=== PATIENT | male | born 1960 | race Caucasian/White ===

== ENCOUNTER 2019-11-02 07:16 | Inpatient (IN) | payer MEDICARE ==
[~2019-11-02] VITALS: Ht 180.3 cm; Wt 75.0 kg
[2019-11-02] MEDS ORDERED: SODIUM CHLORIDE FLUSH 10ML SYR IVF ONE (07:30)
[2019-11-02] MEDS ORDERED: SODIUM CHLORIDE 0.9% 1,000ML IVBOLUS ONE (07:30)
--- NOTE | 2019-11-02 07:37 | NUR ---
PT BIB [facility]. PER REPORTS PT WITH INCREASED WEAKNESS X3 DAYS. COUGH AND FEVER. PT WITH REPORTED DIARHHEA WELL. PER SHE WAS SICK A WEEK AGO AND IS CONCERNED HE HAS WHAT SHE HAD AT THE TIME. PT WITH HX OF [place] AND IS NON VERBAL, ALL REPORT FROM . MASK APPLIED TO PT. PT ST ON MONITOR 120S. 1L ONCOLOGY PHYSICIAN GIVEN, ADDITIONAL BOLUS HUNG PER ERMD. PT ON ALL MONITORS.
[2019-11-02] MEDS ORDERED: ACETAMINOPHEN 650 MG/20.3 ML UDC ONE (08:30)
[2019-11-02] MEDS ORDERED: ACETAMINOPHEN 500 MG TABLET PO ONE (08:30)
[2019-11-02] MEDS ORDERED: ACETAMINOPHEN 650 MG/20.3 ML UDC PEG ONE (08:30)
[2019-11-02 08:35] LABS: BASOPHILS % (AUTO) 0 % (0-1); EOSINOPHILS # (AUTO) 0.01 x10^3/uL (0-0.4); EOSINOPHILS % (AUTO) 0 % (1-7); LYMPHOCYTES # (AUTO) 0.17 x10^3/uL (1-3.4); LYMPHOCYTES % (AUTO) 4 % (22-44); MD NO; MEAN CORPUSCULAR HEMOGLOBIN 30.2 pg (27.5-34.5); MEAN CORPUSCULAR HGB CONC 33.5 g/dL (33.2-36.2); MEAN CORPUSCULAR VOLUME 90.1 fL (81-97); MONOCYTES # (AUTO) 0.32 x10^3/uL (0.2-0.8); MONOCYTES % (AUTO) 7 % (2-9); NEUTROPHILS # (AUTO) 3.92 x10^3/uL (1.8-6.8); NEUTROPHILS % (AUTO) 89 % (42-75); PLATELET COUNT 136 x10^3/uL (130-400); RED BLOOD COUNT 4.97 x10^6/uL (4.38-5.82); RED CELL DISTRIBUTION WIDTH 14.1 % (9.4-14.8)
[2019-11-02 08:37] LABS: ALANINE AMINOTRANSFERASE 42 U/L (12-78); ALBUMIN 2.9 g/dL (3.4-5.0); ANION GAP 5 mmol/L (5-15); CALCIUM 8.3 mg/dL (8.5-10.1); CHLORIDE 116 mmol/L (98-107); CREATININE 1.05 mg/dL (0.7-1.3)
--- NOTE | 2019-11-02 08:37 | NUR ---
PT MEDICATED PER OCT. PT REMAINS ST 140S ON MONITOR, ERMD UPDATED. NO ADDITIONAL ORDERS AT THIS TIME
[2019-11-02 08:38] LABS: MICROSCOPIC AUTO
[2019-11-02 08:41] LABS: ALKALINE PHOSPHATASE 58 U/L (45-117); BILIRUBIN,TOTAL 0.4 mg/dL (0.2-1.0); TOTAL PROTEIN 6.8 g/dL (6.4-8.2)
[2019-11-02 08:48] LABS: CULTURE INDICATED? NO
[2019-11-02] MEDS ORDERED: PIPERACILLIN/TAZO/PMX 3.375GM 50 ML ONE (08:58)
[2019-11-02] MEDS: PLEASE ENTER ALLERGIES MC SCH ×2 (09:00→16:36)
[2019-11-02] MEDS ORDERED: PIPERACILLIN/TAZO/PMX 3.375GM 50 ML IV ONE (09:00)
[2019-11-02] MEDS ORDERED: VANCOMYCIN PER PHARMACY MC PRN ×2 (09:00→09:30)
--- NOTE | 2019-11-02 09:08 | NUR ---
ADMITTING MD AT BEDSIDE
[2019-11-02] MEDS ORDERED: NS + 20MEQ KCL 1,000 ML IV SCH (09:16)
[2019-11-02] MEDS ORDERED: KETOROLAC 30 MG/1 ML IV PRN (09:30)
[2019-11-02] MEDS ORDERED: ONDANSETRON ODT 4 MG PO PRN (09:30)
[2019-11-02] MEDS ORDERED: LORazepam 2 MG/ML, 1ML IVPush PRN (09:30)
[2019-11-02] MEDS ORDERED: morphine SULFATE 10 MG/ML, 1ML IVPush PRN (09:30)
[2019-11-02] MEDS ORDERED: hydrALAzine 20 MG/ML, 1ML IVPush PRN (09:30)
[2019-11-02] MEDS ORDERED: ONDANSETRON 2MG/ML, 2ML IVPush PRN (09:30)
[2019-11-02] MEDS ORDERED: NS + 20MEQ KCL 1,000 ML IV ONE (09:43)
[2019-11-02 10:13] LABS: RAPID INFLUENZA A POSITIVE (Negative); RAPID INFLUENZA B Negative (Negative)
--- NOTE | 2019-11-02 11:12 | NUR ---
POC DISCUSSED WITH PT. PT AND FAMILY AT BEDSIDE WOULD LIKE TO DISCONTINUE TREATMENT AND START COMFORT CARE MEASURES, ADMITTING MD MADE AWARE
[2019-11-02] MEDS ORDERED: SCOPOLAMINE 1MG PATCH TD PRN (12:00)
[2019-11-02] MEDS ORDERED: MORPHINE SULFATE 4 MG/ML, 1ML IVPush PRN (12:00)
[2019-11-02 12:54] VITALS: BP 107/61
--- NOTE | 2019-11-02 12:56 | NUR ---
AT BEDSIDE. PT RESTING WITH EYES CLOSED
[2019-11-02] MEDS ORDERED: PIPERACILLIN/TAZO/PMX 4.5GM 100 ML IV SCH (14:00)
[2019-11-02] MEDS: LORazepam 2 MG/ML, 1ML IVPush PRN (18:00)
[2019-11-03] MEDS: LORazepam 2 MG/ML, 1ML IVPush PRN (03:34)
[2019-11-03] MEDS ORDERED: SODIUM CHLORIDE 0.9% 1,000 ML IV SCH (11:11)
[2019-11-03] MEDS ORDERED: MORPHINE SULFATE 4 MG/ML, 1ML IVPush PRN ×3 (11:30)
[2019-11-03] MEDS ORDERED: SCOPOLAMINE 1MG PATCH TD SCH (11:30)
[2019-11-03] MEDS ORDERED: ATROPINE OPHTH SOLN 1%, 5ML BC PRN (11:30)
[2019-11-03] MEDS ORDERED: LORazepam 2 MG/ML, 1ML IVPush PRN (11:30)
[2019-11-03] MEDS: LORazepam 2 MG/ML, 1ML IVPush SCH ×3 (12:45→22:02)
[2019-11-04] MEDS: LORazepam 2 MG/ML, 1ML IVPush SCH ×6 (02:00→21:08)
[2019-11-05] MEDS: LORazepam 2 MG/ML, 1ML IVPush SCH ×4 (01:03→13:00)
== END 2019-11-05 14:56 | disposition expired | DRG 871 ==
LOC: EDSEX 07:16 → EDBD 07:16 → SUATTDRO 09:00 → ED 09:19 → EDIP 09:54 → 4NW 16:19
PROVIDERS: ADMIT Hospitalist; ATTEND Hospitalist
DX: A41.9 Sepsis, unspecified organism (principal); J69.0 Pneumonitis due to inhalation of food and vomit; G10 Huntington's disease; E87.0 Hyperosmolality and hypernatremia; J10.89 Influenza due to other identified influenza virus with other manifestations; R65.20 Severe sepsis without septic shock; Z66 Do not resuscitate; Z51.5 Encounter for palliative care; R32 Unspecified urinary incontinence; Z79.899 Other long term (current) drug therapy
CPT/HCPCS: 36415; 36600; 71045; 80053; 81001; 82803; 83605; 84145; 85025; 87040; 87400; 93005; G0378; J2270; J2543; J3480; J2060; J7030